=== PATIENT | female | born 1995 | race Caucasian/White ===

== ENCOUNTER 2018-01-26 11:10 | Inpatient (IN) | payer OTHER ==
[~2018-01-26] VITALS: Ht 157.5 cm; Wt 54.4 kg
== END 2018-01-30 15:54 | disposition home or self-care (01) | DRG 134 ==
LOC: ER 11:10 → MEDI 21:49 → SEC-K 21:49 → MEDI 23:30
PROC: BW2FY0Z Computerized Tomography (CT Scan) of Neck using Other Contrast, Unenhanced and Enhanced (ICD-10-PCS; 2018-01-26)
PROC: 0C9P3ZX Drainage of Tonsils, Percutaneous Approach, Diagnostic (ICD-10-PCS; principal; 2018-01-27)
PROC: 09JK8ZZ Inspection of Nasal Mucosa and Soft Tissue, Via Natural or Artificial Opening Endoscopic (ICD-10-PCS; 2018-01-27)
PROC: BG44ZZZ Ultrasonography of Thyroid Gland (ICD-10-PCS; 2018-01-28)
DX: J03.01 Acute recurrent streptococcal tonsillitis (principal); E04.2 Nontoxic multinodular goiter

== ENCOUNTER 2018-06-06 11:31 | Outpatient (CLI) | payer OTHER | END 2018-06-06 11:35 | disposition home or self-care (01) | LOC: SONOGRAMA 11:31 | DX: E04.1 Nontoxic single thyroid nodule (principal) ==

== ENCOUNTER 2018-09-14 13:03 | Outpatient (CLI) | payer OTHER | END 2018-09-14 15:00 | disposition home or self-care (01) | LOC: LAB 13:03 | DX: J36 Peritonsillar abscess (principal) ==

== ENCOUNTER 2019-09-15 11:33 | Emergency (ER) | payer OTHER ==
[~2019-09-15] VITALS: Ht 154.9 cm; Wt 54.4 kg
== END 2019-09-15 16:46 | disposition home or self-care (01) ==
LOC: ER 11:33
DX: J10.83 Influenza due to other identified influenza virus with otitis media (principal); J03.80 Acute tonsillitis due to other specified organisms

== ENCOUNTER 2019-11-06 09:47 | Emergency (ER) | payer OTHER ==
[~2019-11-06] VITALS: Ht 157.5 cm; Wt 54.4 kg
[2019-11-06] MEDS ORDERED: ZITHROMAX500 MG PO (14:46)
== END 2019-11-06 14:55 | disposition home or self-care (01) ==
LOC: ER 09:47
DX: R07.0 Pain in throat (principal); B96.0 Mycoplasma pneumoniae [M. pneumoniae] as the cause of diseases classified elsewhere

== ENCOUNTER 2022-06-05 12:49 | Outpatient (CLI) | payer OTHER ==
[~2022-06-05 12:49] MED LIST: ZITHROMAX500 MG PO
== END 2022-06-05 13:32 | disposition home or self-care (01) ==
LOC: SONOGRAMA 12:49
DX: E04.1 Nontoxic single thyroid nodule (principal)

== ENCOUNTER 2022-08-17 15:16 | Outpatient (CLI) | payer OTHER | END 2022-08-17 15:21 | disposition home or self-care (01) | LOC: SONO 607 15:16 | PROVIDERS: ATTEND Pathology Anatomic Pathology & Clinical Pathology | DX: E04.2 Nontoxic multinodular goiter (principal) ==